=== PATIENT | male | born 1980 | race African-American/Black ===

== ENCOUNTER 2021-06-03 17:41 | Emergency (ER) | payer OTHER, SELFPAY ==
[2021-06-03 17:45] VITALS: BP 171/100; PULSE 110; RESP 22; TEMP 36.6; O2SAT 98
--- NOTE | 2021-06-03 19:50 | ED.GENADULT ---
HPI - General Adult General Chief complaint: Dental/Oral Stated complaint: Cold Symptoms Time Seen by Provider: 06/03/21 19:10 Source: patient and RN notes reviewed Mode of arrival: ambulatory Limitations: no limitations History of Present Illness HPI narrative: Patient is a 40-year-old male who presents to emergency department for evaluation of congestion rhinorrhea and headache with minimal cough patient had upper and lower molar extraction last Wednesday and is currently on hydrocodone amoxicillin and ibuprofen which she states has not been helping he states over the last 2 days he has developed congestion rhinorrhea minimal cough with fever chills and body aches his medications have not been helping. Patient notes he has had 1 Covid vaccine dose. Patient denies any sick contacts Related Data Allergies Allergy/AdvReac Type Severity Reaction Status Date / Time No Known Allergies Allergy Verified 06/03/21 19:58 Review of Systems Review of Systems: All systems reviewed & are unremarkable except as noted in HPI and below PMFSH Social History Social History (Updated 06/03/21 @ 19:51 by Mk Quinonez PA-C) Smoking status: Never smoker Exam Narrative: GENERAL: Well-appearing, well-nourished, and in no acute distress. HEAD: Normocephalic, atraumatic. EYES: PERRLA and EOMI. ENT: Nares clear, no rhinorrhea or epistaxis. Mucous membranes moist. Oropharynx without tonsillar hypertrophy exudate or other lesions. Patient's extraction sites are without erythema or swelling of the gumline both sockets were irrigated. Uvula is midline no trismus or drooling no peritonsillar hypertrophy NECK: Supple. No adenopathy or masses. CHEST: Clear to auscultation. No respiratory distress. No wheezes rales or rhonchi HEART: Regular rate and rhythm. No murmur heard. EXTREMITIES: Normal range of motion. No edema. SKIN: Warm, dry, no rash. NEURO: No focal deficits. Alert and oriented x3. Cranial nerves II through XII grossly intact PSYCH: Normal mood and affect. Course Course Emergency Course: Patient presented with dental pain from extraction the extraction sites do not show any obvious infection felt that the patient could be developing upper respiratory symptoms will be tested for influenza and Covid patient will be given indications for return he is hemodynamically stable he is felt appropriate for some outpatient therapy given indications to return ABCs and vital signs intact and stable Vital Signs Vital signs: Vital Signs Temperature 98 F 06/03/21 17:45 Pulse Rate 110 H 06/03/21 17:45 Respiratory Rate 22 H 06/03/21 17:45 Blood Pressure 171/100 H 06/03/21 17:45 Pulse Oximetry 98 06/03/21 17:45 Temperature 98 F 06/03/21 17:45 Pulse Rate 110 H 06/03/21 17:45 Respiratory Rate 22 H 06/03/21 17:45 Blood Pressure 171/100 H 06/03/21 17:45 Pulse Oximetry 98 06/03/21 17:45 Procedures Other Procedure Procedure 1: Other Procedure: The extraction sockets from the patient's extractions were irrigated with normal saline Medical Decision Making MDM Narrative Medical decision making narrative: Patient in the room nondistressed will be advised to continue his antibiotics and medications and to follow-up with his dentist for further evaluation he will also be advised to follow-up for his Covid and influenza results he is felt appropriate for outpatient reevaluation he refused any medications in the emergency department Vital Signs Vital Signs: Vital Signs Temperature 98 F 06/03/21 17:45 Pulse Rate 110 H 06/03/21 17:45 Respiratory Rate 22 H 06/03/21 17:45 Blood Pressure 171/100 H 06/03/21 17:45 Pulse Oximetry 98 06/03/21 17:45 Temperature 98 F 06/03/21 17:45 Pulse Rate 110 H 06/03/21 17:45 Respiratory Rate 22 H 06/03/21 17:45 Blood Pressure 171/100 H 06/03/21 17:45 Pulse Oximetry 98 06/03/21 17:45 Discharge Plan Discharge Clinical Impression: Toothache, Acute
--- NOTE | 2021-06-03 19:59 | PC.NURSE ---
pt states he has been taking norco and motrin at home with no relief. PA made aware.
[2021-06-03 20:30] LABS: Influenza A QL RT-PCR Negative (Negative); Influenza B QL RT-PCR Negative (Negative)
[2021-06-04 09:32] LABS: SARS-CoV-2 RNA PCR Negative
== END 2021-06-03 20:16 | disposition home or self-care (01) ==
PROVIDERS: Emergency Medicine Emergency Medical Services; Emergency Provider Emergency Medicine; PCP Family Medicine
DX: B34.9 Viral infection, unspecified (principal); K08.89 Other specified disorders of teeth and supporting structures; Z20.822 Contact with and (suspected) exposure to COVID-19
CPT/HCPCS: 87502; 99283; C9803; U0003; U0005